=== PATIENT | male | born 1985 | race Caucasian/White ===

== ENCOUNTER 2016-11-05 14:26 | Emergency (ER) | payer OTHER ==
[~2016-11-05] VITALS: Ht 185.4 cm; Wt 88.5 kg
[2016-11-05] MEDS ORDERED: NORCO 5-325 TA1 EACH PO (14:37)
== END 2016-11-05 14:44 | disposition home or self-care (01) ==
LOC: ED 14:26
DX: Z00.8 Encounter for other general examination (principal)